=== PATIENT | male | born 1995 | race Hispanic/Latino ===

== ENCOUNTER 2024-01-31 23:59 | Emergency (ER) | payer SELFPAY ==
[2024-02-01 00:39] VITALS: BP 136/76; PULSE 106; RESP 16; TEMP 36.6; O2SAT 98; BMI 25.0
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
== END 2024-02-01 04:25 | disposition left against medical advice (07) ==
PROVIDERS: Emergency Provider Emergency Medicine
CPT/HCPCS: 99281